=== PATIENT | male | born 1945 | race Caucasian/White ===

== ENCOUNTER 2017-08-23 12:57 | Emergency (ER) | payer OTHER ==
[2017-08-23] MEDS ORDERED: NS 1,000 ML IV ONE (13:16)
[2017-08-23] MEDS ORDERED: KETOROLAC 30 MG/1 ML SDV IVP ONE (13:16)
--- NOTE | 2017-08-23 13:19 | EDPHY ---
H & P Time Seen by Provider: 08/23/17 13:15 HPI/ROS: CHIEF COMPLAINT: Dysuria History by patient HISTORY OF PRESENT ILLNESS: 71-year-old man with a history hypertension and of kidney stones for which he has had 2 operations in April and May of last year in [place] where he usually lives presents today with 3 days of increasing dysuria, suprapubic pain, testicular pain left greater than right and low back pain. There has been no associated fever, chills, nausea or vomiting. He has taken some Tylenol with minimal relief. It feels similar to his prior episodes of kidney stones. He denies any blood in his urine. He states in the past they have given him medicine which has resolved the problem. He states the testicular pain also was related to his prior left kidney surgery. He has been on Flomax in the past but ran out several days ago. He is also running out of his blood pressure medicine. Patient also complains of intermittent leg swelling though none today, as well as generalized itching and itchy eyes. Patient has a gallbladder removed in June of last year. REVIEW OF SYSTEMS: As in HPI, and all other systems reviewed and are negative Source: Patient, Family, [employer] - Physical Exam Exam: General Appearance: Alert, elderly, nontoxic. Eyes: Pupils equal and round, extraocular movements intact, mild bilateral injection. Mouth: Mucous membranes moist. Pharynx clear Respiratory: Normal, effort, lungs are clear to auscultation. No wheezes, rales or rhonchi. Cardiovascular: Regular rate and rhythm. S1, S2, no murmurs, gallops or rubs appreciated Gastrointestinal: bowel sounds present, Abdomen is soft and tender in the suprapubic area, no masses : No scrotal edema, no hernia, mild left epididymal tenderness, no testicular tenderness, no right testicular tenderness Back: No CVA tenderness, no bony tenderness Neurological: Awake, alert and oriented x 3, no pronator drift, normal gait, no pronator drift Skin: Warm and dry, no rashes. Musculoskeletal: No deformities or tenderness. Extremities: full range of motion, no edema Psychiatric: Patient has normal affect, there is no agitation. Constitutional: Initial Vital Signs Temperature (C) 36.9 C 08/23/17 13:09 Heart Rate 85 08/23/17 13:09 Respiratory Rate 16 08/23/17 13:09 Blood Pressure 156/91 H 02/21/18 13:09 O2 Sat (%) 96 08/23/17 13:09 Allergies/Adverse Reactions: No Known Allergies Allergy (Unverified 08/23/17 13:21) Home Medications: Medication Instructions Recorded Finasteride 08/23/17 Omeprazole 08/23/17 Tamsulosin HCl 08/23/17 Tamsulosin HCl [Flomax 0.4 MG (*)] 0.4 mg PO DAILY #30 cap 08/23/17 amLODIPine BESYLATE 08/23/17 amLODIPine BESYLATE [Amlodipine 10 mg PO DAILY #30 tablet 08/23/17 Besylate] Medical Decision Making - Diagnostics Imaging Results: Imaging Impressions Abdomen/Pelvis CT 08/23/17 13:16 Impression: 1. Nonspecific large left renal mass. Centrally this could represent a postoperative hematoma. Recommend CT with IV contrast. 2. Nonobstructive nephrolithiasis. 3. Mild prostatomegaly. Results called to Ellie Bond at 1:53 pm. General information for patients regarding this examination can be found at [facility]. If you have questions or comments about this report, please contact me at (hospital) or [phone] (cell). Abdomen CT 08/23/17 13:58 Impression: The left renal mass is a large subcapsular postprocedural hematoma. If clinically indicated this could be drained by interventional radiology. Results discussed with Dr. Bond at 2:30 PM. General information for patients regarding this examination can be found at [facility]. If you have questions or comments about this report, please contact me at (hospital) or [phone] (cell). ED Course/Re-evaluation: 70-year-old man with history of kidney stones presents with ongoing suprapubic pain, dysuria and no back pain. Patient was given IV fluids and ketorolac with improvement in his pain. CBC and chemistries were all within normal limits including renal function and LFTs. Initially stated he was unable to urinate after the CT scan his bladder was obviously full he was able to urinate. On repeat exam he was less tender in the suprapubic area. CT scan showed no evidence of ureterolithiasis but he did have bilateral stones concern for renal mass versus hematoma and radiologist recommended repeat CT scan with contrast. This has been ordered. Repeat CT scan with contrast revealed a large hematoma in the left kidney felt likely to be related to his recent laser procedure on his kidney in May.. Urinalysis showed no evidence of blood or infection. On re-evaluation the patient was feeling much better although he does complain of some ongoing mild the testicular tenderness. His testicular exam was unremarkable except for some mild epididymal tenderness however given the negative urinalysis and the fact that he had similar symptoms related to his prior kidney stones I doubt epididymitis. This point there is no evidence of obstructive uropathy. Patient 's kidney function is normal. It is unclear whether this hematoma is causing the patient's symptoms but he is symptomatically improved. Although radiologist was concerned that the hematoma compressing his kidney could cause hypertension, the patient has a longstanding history of hypertension prior to his previous urologic procedures. There is also of the soft possibility this patient is having some obstructive symptoms for related to his prostate which are exacerbated by running out of his Flomax. I recommending close follow-up with Urology. We also discussed return precautions including but not limited to fever, pain out of control, vomiting or inability to urinate. - Data Points Laboratory Results: Laboratory Results 08/23/17 13:30 08/23/17 13:30 08/23/17 08/23/17 08/23/17 14:00 13:30 13:30 WBC RBC Hgb Hct MCV MCH MCHC RDW Plt Count MPV Neut % (Auto) Lymph % (Auto) [place] % (Auto) Eos % (Auto) Baso % (Auto) Nucleat RBC Rel Count Absolute Neuts (auto) Absolute Lymphs (auto) Absolute Monos (auto) Absolute Eos (auto) Absolute Basos (auto) Absolute Nucleated RBC Immature Gran % Immature Gran # Sodium 142 mEq/L mEq/L (135-145) Potassium 3.8 mEq/L mEq/L (3.5-5.2) Chloride 100 mEq/L mEq/L (97-110) Carbon Dioxide 26 mEq/l mEq/l (22-31) Anion Gap 16 mEq/L mEq/L (8-16) BUN 11 mg/dL mg/dL (7-23) Creatinine 1.0 mg/dL mg/dL (0.7-1.3) Estimated GFR > 60 Glucose 77 mg/dL mg/dL (70-100) Calcium 10.3 mg/dL mg/dL (8.5-10.4) Total Bilirubin 0.7 mg/dL mg/dL (0.1-1.4) Conjugated Bilirubin 0.3 mg/dL mg/dL (0.0-0.5) Unconjugated Bilirubin 0.4 mg/dL mg/dL (0.0-1.1) AST 19 IU/L IU/L (17-59) ALT 20 IU/L L IU/L (21-72) Alkaline Phosphatase 121 IU/L IU/L (38-126) Total Protein 8.0 g/dL g/dL (6.3-8.2) Albumin 4.3 g/dL g/dL (3.5-5.0) Lipase 140 IU/L IU/L (23-300) Urine Color YELLOW Urine Appearance CLEAR Urine pH 7.0 (5.0-7.5) Ur Specific [place] <= 1.005 (1.002-1.030) Urine Protein NEGATIVE (NEGATIVE) Urine Ketones NEGATIVE (NEGATIVE) Urine Blood NEGATIVE (NEGATIVE) Urine Nitrate NEGATIVE (NEGATIVE) Urine Bilirubin NEGATIVE (NEGATIVE) Urine Urobilinogen 0.2 EU EU (0.2-1.0) Ur Leukocyte Esterase NEGATIVE (NEGATIVE) Urine RBC NONE SEEN /hpf /hpf (0-3) Urine WBC 0-1 /hpf /hpf (0-3) Ur Epithelial Cells TRACE /lpf /lpf (NONE-1+) Urine Glucose NEGATIVE (NEGATIVE) 08/23/17 13:30 WBC 8.31 10^3/uL 10^3/uL (3.80-9.50) RBC 5.38 10^6/uL 10^6/uL (4.40-6.38) Hgb 17.1 g/dL g/dL (13.7-17.5) Hct 49.1 % % (40.0-51.0) MCV 91.3 fL fL (81.5-99.8) MCH 31.8 pg pg (27.9-34.1) MCHC 34.8 g/dL g/dL (32.4-36.7) RDW 12.6 % % (11.5-15.2) Plt Count 245 10^3/uL 10^3/uL (150-400) MPV 9.1 fL fL (8.7-11.7) Neut % (Auto) 50.5 % % (39.3-74.2) Lymph % (Auto) 36.1 % % (15.0-45.0) [place] % (Auto) 9.9 % % (4.5-13.0) Eos % (Auto) 2.5 % % (0.6-7.6) Baso % (Auto) 0.6 % % (0.3-1.7) Nucleat RBC Rel Count 0.0 % % (0.0-0.2) Absolute Neuts (auto) 4.20 10^3/uL 10^3/uL (1.70-6.50) Absolute Lymphs (auto) 3.00 10^3/uL 10^3/uL (1.00-3.00) Absolute Monos (auto) 0.82 10^3/uL H 10^3/uL (0.30-0.80) Absolute Eos (auto) 0.21 10^3/uL 10^3/uL (0.03-0.40) Absolute Basos (auto) 0.05 10^3/uL 10^3/uL (0.02-0.10) Absolute Nucleated RBC 0.00 10^3/uL 10^3/uL (0-0.01) Immature Gran % 0.4 % % (0.0-1.1) Immature Gran # 0.03 10^3/uL 10^3/uL (0.00-0.10) Sodium Potassium Chloride Carbon Dioxide Anion Gap BUN Creatinine Estimated GFR Glucose Calcium Total Bilirubin Conjugated Bilirubin Unconjugated Bilirubin AST ALT Alkaline Phosphatase Total Protein Albumin Lipase Urine Color Urine Appearance Urine pH Ur Specific [place] Urine Protein Urine Ketones Urine Blood Urine Nitrate Urine Bilirubin Urine Urobilinogen Ur Leukocyte Esterase Urine RBC Urine WBC Ur Epithelial Cells Urine Glucose Medications Given: Discontinued Medications Sodium Chloride (Ns) 1,000 mls @ 0 mls/hr IV ONCE ONE; Wide Open PRN Reason: Protocol Stop: 08/23/17 13:17 Last Admin: 08/23/17 13:29 Dose: 1,000 mls Ketorolac Tromethamine (Toradol) 15 mg IVP EDNOW ONE Stop: 08/23/17 13:17 Last Admin: 08/23/17 13:29 Dose: 15 mg Departure - Departure Disposition: Home, Routine, Self-Care Clinical Impression: Testicular pain, unspecified, Renal lithiasis Renal hematoma, left Qualifiers: Encounter type: initial encounter Qualified Code(s): S37.012A - Minor contusion of left kidney, initial encounter Condition: Good Instructions: Benign Prostatic Hypertrophy (ED) Additional Instructions: You were seen by Dr. Ellie Bond today. Take Flomax and blood pressure medicine as prescribed. Take ibuprofen and/or Tylenol as needed for pain. Please follow-up with Urology, Dr. Acevedo, as soon as possible. Return immediately for any fever, vomiting, inability to urinate, uncontrolled pain or new concerns. Return for any worsening or new concerns. Referrals: NONE *PRIMARY CARE P,. [Primary Care Provider] - As per Instructions Rafal Acevedo MD [Medical Doctor] - As per Instructions Prescriptions: amLODIPine BESYLATE [Amlodipine Besylate] 10 mg PO DAILY #30 tablet Tamsulosin HCl [Flomax 0.4 MG (*)] 0.4 mg PO DAILY #30 cap Print Language: Omani
[2017-08-23 13:33] LABS: PLATELET COUNT 245 10^3/uL (150-400)
[2017-08-23] MEDS ORDERED: IOPAMIDOL (ISOVUE-300) 100 ML BTL ONE (14:00)
[2017-08-23 14:56] VITALS: RESP 20; TEMP 98.2; O2SAT 95
[2017-08-23 14:58] VITALS: BP 153/72; PULSE 75
== END 2017-08-23 15:12 | disposition home or self-care (01) ==
LOC: CED 12:57
DX: N20.0 Calculus of kidney (principal); N50.812 Left testicular pain; M79.81 Nontraumatic hematoma of soft tissue; E86.9 Volume depletion, unspecified; I10 Essential (primary) hypertension
CPT/HCPCS: 74176; 74177; 96361; 96374; 99285; J1885; Q9967; 80048-PO; 80076-PO; 81003-PO; 81015-PO; 83690-PO; 85025-PO

== ENCOUNTER → 2017-09-29 | Outpatient (CLI) | payer OTHER | LOC: FIMAGING 13:29 | PROVIDERS: ATTEND Physician Assistant | DX: N43.3 Hydrocele, unspecified (principal); N28.89 Other specified disorders of kidney and ureter; N28.1 Cyst of kidney, acquired ==